=== PATIENT | female | born 1965 | race Caucasian/White ===

== ENCOUNTER 2018-08-31 20:26 | Emergency (ER) | payer OTHER ==
[~2018-08-31] VITALS: Ht 175.3 cm; Wt 81.6 kg
[2018-08-31] MEDS ORDERED: TDAP DIPH,PERTUSS,TET VAC/PF 0.5 ML DISP.SYRIN IM ONE ×2 (21:10→21:15)
[2018-08-31] MEDS ORDERED: CEphaleXIN 500 MG CAPSULE ONE (21:29)
[2018-08-31] MEDS ORDERED: CEphaleXIN 500 MG CAPSULE PO ONE (21:30)
--- NOTE | 2018-08-31 21:30 | NUR ---
Patient discharged to home in stable conditon. Written and verbal after care instructions given. Patient verbalizes understanding of instructions.
== END 2018-08-31 21:31 | disposition home or self-care (01) ==
LOC: ER 20:28
DX: S91.312A Laceration without foreign body, left foot, initial encounter (principal); W25.XXXA Contact with sharp glass, initial encounter; Y93.89 Activity, other specified; Y92.89 Other specified places as the place of occurrence of the external cause; Y99.8 Other external cause status
CPT/HCPCS: 73630; 90715; A4217; A4663